=== PATIENT | female | born 1990 | race Caucasian/White ===

== ENCOUNTER 2017-10-31 15:03 | Emergency (ER) | payer BC ==
[~2017-10-31] VITALS: Ht 160 cm; Wt 53.6 kg
[~2017-10-31 15:03] MED LIST: EFFEXOR 75M75 MG/TAB PO; MIRENA52 MG IY; ULTRAM 50MG TAB50 MG PO; ZOFRAN8 MG PO
[2017-10-31] MEDS ORDERED: WELLBUTRIN XL300 M1 PO (15:11)
[2017-10-31] MEDS ORDERED: ABILIFY2 MG PO (15:11)
[2017-10-31 15:38] LABS: BASO # 0.1 (0.0-0.2); BASO % 0.7 % (0.0-2.0); EOS # 0.1 (0.0-0.7); EOS % 1.3 % (0-4.0); GRAN # 4.6 (1.4-6.5); GRAN % 53.1 % (42.2-75.2); HEMATOCRIT 40.5 % (37.0-47.0); HEMOGLOBIN 14.3 g/dl (12.5-16.0); LYMPH # 3.4 (1.2-3.4); LYMPH % 39.1 % (20.0-51.0); MEAN CELL VOLUME 88 fl (80.0-100.0); MEAN CORPUSCULAR HEMOGLOBIN 31 pg (27.0-31.0); MEAN CORPUSCULAR HGB CONC 35 g/dl (33.0-37.0); MEAN PLATELET VOLUME 9.5 fl (7.4-10.4); MONO # 0.5 (0.1-0.6); MONO % 5.6 % (1.7-9.3); PLATELET COUNT 336 K/mm3 (130-400); RED BLOOD COUNT 4.58 M/mm3 (4.10-5.30); REDCELL DISTRIBUTION WIDTH-CV 11.4 % (11.5-14.5)
[2017-10-31 15:47] LABS: ALBUMIN 4.6 gm/dL (3.5-5.0); BILIRUBIN,TOTAL 0.3 mg/dL (0.0-1.0); CREATININE, serum 0.78 mg/dL (0.52-1.25); POTASSIUM 3.6 mmol/L (3.4-5.0); TOTAL PROTEIN 7.4 gm/dL (6.4-8.2)
[2017-10-31 16:14] LABS: COLLECTION METHOD CLEAN CATCH
[2017-10-31 17:00] LABS: MUCOUS Present /lpf; PH 6 (5-8); SQUAMOUS EPITHELIAL 0-2 /hpf; URINE APPEARANCE Clear; URINE BACTERIA None Seen /hpf; URINE BILIRUBIN Negative (NEGATIVE); URINE BLOOD Negative (NEGATIVE); URINE COLOR Yellow; URINE GLUCOSE Negative (NEGATIVE); URINE KETONE Negative (NEGATIVE); URINE LEUKOCYTE ESTERASE Negative (NEGATIVE); URINE NITRATE Negative (NEGATIVE); URINE PROTEIN(semi-quant) Negative (NEGATIVE); URINE UROBILINOGEN Negative (NEGATIVE)
[2017-10-31 18:27] VITALS: BP 125/78; PULSE 87; TEMP 97.9
== END 2017-10-31 18:27 | disposition home or self-care (01) ==
LOC: COL.ER 15:03
PROVIDERS: Emergency Medicine
DX: E86.0 Dehydration (principal); R55 Syncope and collapse; F17.210 Nicotine dependence, cigarettes, uncomplicated
CPT/HCPCS: J7030

== ENCOUNTER 2019-02-26 09:10 | Inpatient (IN) | payer BC ==
[2019-02-26] VITALS (23 sets, daily range): BP systolic 109–139; BP diastolic 60–92; PULSE 59–93; TEMP 97.9–98.3
[~2019-02-26] VITALS: Ht 160 cm; Wt 61.8 kg
[~2019-02-26 09:10] MED LIST changes: +ABILIFY2 MG PO; +VYVANSE10 MG PO; +WELLBUTRIN XL300 M1 PO
--- NOTE | 2019-02-26 09:10 | NUR ---
Patient ambulates to LR3 with spouse, changes into gown, FHR/TOCO monitors placed and explained. Patient states she "was going to just go to the clinic but they said come to be checked here" "Have been vomitting and having diarhhea since 1600 yesterday, and bloody show and then had more blood and been having some contractions" Plan of care discussed SV- with bloody show called and notified and orders to watch patient for and hour and then recheck. PAtient vmoits. 1015: SVE-- and Dr. Porter called and notifed and orders to give fluids IV 1000ml and recheck in an hour. 1035: IV started in left had and blood drawn, LR infusing. 1115: SVE- and Dr. Porter called and notifed. 1145: Patient admitted and consents gone over and signed and packet given.
[2019-02-26] MEDS ORDERED: PRENATAL TABLET PO (10:12)
[2019-02-26 12:08] LABS: BASO # 0.1 (0.0-0.2); BASO % 0.6 % (0.0-2.0); EOS # 0.1 (0.0-0.7); EOS % 0.6 % (0-4.0); GRAN # 8.4 (1.4-6.5); GRAN % 72.7 % (42.2-75.2); HEMOGLOBIN 11.7 g/dl (12.5-16.0); LYMPH # 2.2 (1.2-3.4); LYMPH % 19.4 % (20.0-51.0); MEAN CELL VOLUME 88 fl (80.0-100.0); MEAN CORPUSCULAR HEMOGLOBIN 30 pg (27.0-31.0); MEAN CORPUSCULAR HGB CONC 34 g/dl (33.0-37.0); MEAN PLATELET VOLUME 10.6 fl (7.4-10.4); MONO # 0.7 (0.1-0.6); MONO % 6.3 % (1.7-9.3); PLATELET COUNT 332 K/mm3 (130-400); RED BLOOD COUNT 3.97 M/mm3 (4.10-5.30); REDCELL DISTRIBUTION WIDTH-CV 11.8 % (11.5-14.5)
[2019-02-26 12:09] LABS: HEMATOCRIT 34.9 % (37.0-47.0)
--- NOTE | 2019-02-26 14:48 | NUR ---
Patient off monitor to ambulate at this time 1515: Dr. Porter at bedside and assessing patient and FHR strip. Sono done at this time and in vertex position. Dr. Porter discusses plan of care.
--- NOTE | 2019-02-26 15:30 | NUR ---
Dr. Porter at bedside discussing that medications she is currently taking may have effects on baby and recommends to bottle feed until Sravani Suggs RN and pediatrians are notified. Patient verbalizes understanding and agrees.
--- NOTE | 2019-02-26 15:56 | NUR ---
Patient back on monitors after ambulating. 1648: Dr. Porter at bedside assessing patient and FHR strip. 1650: SVE-4/80/-2 per physician and AROM at this time with clear fluid noted. Physician orders to start pitocin. Plan of care discussed.
--- NOTE | 2019-02-26 17:10 | NUR ---
Patient sitting on birthing ball. 1725: Difficulty tracing FHR due to maternal position. Patient requests epidural and Heydi SANDOVAL notified. 1738: Patient sitting on edge of bed and Radu Barrera CRNA at bedside for placement of epidural. 1751: Test dose given and patient tolerates well. Difficulty tracing FHR due to maternal position. 1755: Patient states she is feeling alot of pressure, patient repositioned and becoming more comfortable. 1800: SVE:6-7/90/-1 1805: Patient feeling alot of pressure. SVE-10/100/+1 patient very uncomfortable. 1810: Dr. Porter called and notified and on the way. 1820: Franklin WHITE given bedside report and assumes care of infant. Dr. Porter here and patient set up for vaginal delivery.
--- NOTE | 2019-02-26 18:25 | NUR ---
1824- Pushing started. 1833- of viable female . Infant placed on mom's abdomen. Cords clampmed and cut. Care of given to nursery RN at the bedside. 1837- of placenta. Pitocin started at 333ml/hr per order and protocol. Fundus firm and lochia WNL.
--- NOTE | 2019-02-26 21:21 | NUR ---
Pt up to the bathroom with standby assist and without complications. Pt was able to void a moderate amount of urine. Martha-care done. Pt to wheelchair for transfer to room 216. Oriented to room, bed and call light within reach. Plan of care reviewed with pt.
[2019-02-27 04:20] VITALS: BP 127/86; PULSE 79; TEMP 98.2
[2019-02-27 07:25] VITALS: BP 116/74; PULSE 76; TEMP 97.8
[2019-02-27 08:25] LABS: HEMATOCRIT 33.2 % (37.0-47.0); HEMOGLOBIN 10.9 g/dl (12.5-16.0)
[2019-02-27] MEDS ORDERED: IBU600 MG PO (10:08)
--- NOTE | 2019-02-27 10:35 | NUR ---
Initial visit; Parents thanked Lathe Spotter for offering congratulations and God's blessings for the of their daughter. Lathe Spotter thanked family for choosing [facility].
[2019-02-27 16:19] VITALS: BP 124/78; PULSE 86; TEMP 98.4
[2019-02-27 20:00] VITALS: BP 124/83; PULSE 92; TEMP 98.8
[2019-02-28 08:30] VITALS: BP 122/82; PULSE 88; TEMP 98
--- NOTE | 2019-02-28 12:28 | NUR ---
1200 DISCHARGE INFORMATION GIVEN TO MOTHER. MOTHER UNDERSTANDS BOARD STATUS. NO QUESTIONS AT THIS TIME.
== END 2019-02-28 12:00 | disposition home or self-care (01) | DRG 807 ==
LOC: LDRO 09:10 → OB 11:29 → LDR 11:29 → OB 21:25
PROVIDERS: ADMIT Obstetrics & Gynecology
PROC: 10E0XZZ Delivery of Products of Conception, External Approach (ICD-10-PCS; principal; 2019-02-26)
PROC: 10907ZC Drainage of Amniotic Fluid, Therapeutic from Products of Conception, Via Natural or Artificial Opening (ICD-10-PCS; 2019-02-26)
DX: O36.5930 Maternal care for other known or suspected poor fetal growth, third trimester, not applicable or unspecified (principal); Z37.0 Single live birth; Z3A.37 37 weeks gestation of pregnancy; O99.344 Other mental disorders complicating childbirth; F32.9 Major depressive disorder, single episode, unspecified; F41.9 Anxiety disorder, unspecified
CPT/HCPCS: J2405; J2590; J7120